=== PATIENT | female | born 1995 | race African-American/Black ===

== ENCOUNTER 2018-10-23 21:19 | Emergency (ER) | payer OTHER ==
[~2018-10-23] VITALS: Ht 167.6 cm; Wt 77.1 kg
[2018-10-23 21:51] VITALS: BP 112/56
== END 2018-10-23 23:22 | disposition home or self-care (01) ==
LOC: ER 21:19
DX: O99.513 Diseases of the respiratory system complicating pregnancy, third trimester (principal); Z3A.32 32 weeks gestation of pregnancy